=== PATIENT | male | born 1960 | race African-American/Black ===

== ENCOUNTER 2016-07-25 20:19 | Inpatient (IN) | payer OTHER, MEDICAID ==
[~2016-07-25] VITALS: Ht 180.3 cm; Wt 112.9 kg
[2016-07-25] MEDS ORDERED: NKM (20:21)
[2016-07-25 20:30] VITALS: BP 175/76
[2016-07-25 20:39] LABS: BASOPHILS % (AUTO) 0.5 % (0.0-2.0); MEAN CORPUSCULAR HEMOGLOBIN 33.4 PG (27.0-31.0); MEAN CORPUSCULAR HGB CONC 37.1 G/DL (32.0-36.0); MEAN CORPUSCULAR VOLUME 90 FL (80-99); MEAN PLATELET VOLUME 7.5 FL (6.5-10.1); MONOCYTES % (AUTO) 5.8 % (1.0-10.0); NEUTROPHILS % (AUTO) 77.7 % (45.0-75.0); PLATELET COUNT 239 K/UL (150-450); RED BLOOD COUNT 5.29 M/UL (4.70-6.10); RED CELL DISTRIBUTION WIDTH 12.4 % (11.6-14.8); WHITE BLOOD COUNT 11.6 K/UL (4.8-10.8)
[2016-07-25] MEDS ORDERED: LORazepam Inj 2mg/ml 1ml IV ONE ×2 (20:45→22:30)
[2016-07-25 20:57] LABS: ALANINE AMINOTRANSFERASE 30 U/L (3-41); ALBUMIN/GLOBULIN RATIO 1.2 (1.0-2.7); ANION GAP 21 (5-15); ASPARTATE AMINO TRANSFERASE 42 U/L (5-40); CALCIUM 9.2 mg/dL (8.6-10.2); CARBON DIOXIDE 21 mEQ/L (20-30); CHLORIDE 95 mEQ/L (98-107); CREATININE 1.8 mg/dL (0.7-1.2); GLOMERULAR FILTRATION RATE 39.1 mL/min (>60); HEMOLYSIS 8; POTASSIUM 3.5 mEQ/L (3.4-4.9); SODIUM 137 mEQ/L (135-145); TOTAL PROTEIN 7.8 g/dL (6.6-8.7); TROPONIN I < 0.30 ng/mL (<=0.30)
[2016-07-25 21:08] LABS: CKMB 4.2 ng/mL (< 6.7)
[2016-07-25 22:00] VITALS: BP 172/55
[2016-07-25] MEDS ORDERED: Morphine Sulfate 4mg/ml Inj IVP ONE (22:30)
[2016-07-25 23:03] VITALS: BP 162/73
[2016-07-26] VITALS: BP 153/88
--- NOTE | 2016-07-26 01:12 | Emergency Room Report ---
History of Present Illness General Chief Complaint: Substance Abuse Source: Patient, EMS Present Illness HPI The patient is a 55-year-old male brought in by EMS after increased lower extremity pain after reportedly falling. The patient had been noted to have a recent substance use. Per EMS the patient had been using cocaine. The patient was noted to be fairly agitated by EMS. He reported having pain to both knees worse on the left side. History is limited by patient's agitation poor cooperation. Allergies: Coded Allergies: No Known Allergies (Unverified , 07/25/16) Patient History Past Medical History: see triage record Reviewed Nursing Documentation: PMH: Agreed, PSxH: Agreed Review of Systems All Other Systems: limited - by mental status and confusion Physical Exam Vital Signs Date Time Temp Pulse Resp B/P Pulse Ox O2 Delivery O2 Flow Rate FiO2 07/25/16 20:17 100.9 152 29 186/81 97 Room Air 07/25/16 23:57 2.0 General Appearance: alert, GCS 15, moderate distress ENT: hearing grossly normal, normal voice Neck: full range of motion Respiratory: lungs clear, normal breath sounds Cardiovascular #1: no edema, tachycardia Gastrointestinal: normal bowel sounds, non tender, soft Musculoskeletal: decreased range of motion - right patellar swelling without deformity, left patellar superior displacement. Skin: normal inspection Medical Decision Making Diagnostic Impression: Primary Impression: Substance abuse Additional Impressions: Rhabdomyolysis Ruptured patellar tendon Tachycardia with heart rate 121-140 beats per minute ER Course Patient presented for rapid heartbeat and the lower extremity pain. Differential diagnosis included wasn't limited to anemia, substance intoxication , myocardial infarction, cardiac arrhythmia, knee dislocation, fracture, ligamentous sprain among others among others. Because of complexity of patient' s case laboratory testing and imaging studies were ordered. The patient started on IV fluids. He was given Ativan for agitation. The patient was noted to be at confused and continually trying to leave the bed. Patient appeared to have poor recall of conversations. He did not appear to have capacity to make his own decisions at this time. This may be due to methamphetamine intoxication. Urine drug use positive for amphetamine. Patient was noted to have improvement in his blood pressure after IV Ativan. Laboratory testing also showed a mild elevation of creatinine as well as elevation of the CPK consistent with rhabdomyolysis The patient was started on IV fluids. He was advised that he would need continued IV fluids for prevention of kidney failure. The patient was placed in soft restraints. Dr. Denzel Corea contacted for inpatient management due to the patient's persistent tachycardia and confusion. The patient was placed in a knee immobilizer for a patellar tendon injury. Labs Test 07/25/16 20:15 07/25/16 21:50 White Blood Count 11.6 K/UL (4.8-10.8) Red Blood Count 5.29 M/UL (4.70-6.10) Hemoglobin 17.7 G/DL (14.2-18.0) Hematocrit 47.7 % (42.0-52.0) Mean Corpuscular Volume 90 FL (80-99) Mean Corpuscular Hemoglobin 33.4 PG (27.0-31.0) Mean Corpuscular Hemoglobin Concent 37.1 G/DL (32.0-36.0) Red Cell Distribution Width 12.4 % (11.6-14.8) Platelet Count 239 K/UL (150-450) Mean Platelet Volume 7.5 FL (6.5-10.1) Neutrophils (%) (Auto) 77.7 % (45.0-75.0) Lymphocytes (%) (Auto) 16.0 % (20.0-45.0) Monocytes (%) (Auto) 5.8 % (1.0-10.0) Eosinophils (%) (Auto) 0.0 % (0.0-3.0) Basophils (%) (Auto) 0.5 % (0.0-2.0) Sodium Level 137 mEQ/L (135-145) Potassium Level 3.5 mEQ/L (3.4-4.9) Chloride Level 95 mEQ/L (98-107) Carbon Dioxide Level 21 mEQ/L (20-30) Anion Gap 21 (5-15) Blood Urea Nitrogen 13 mg/dL (7-23) Creatinine 1.8 mg/dL (0.7-1.2) Estimat Glomerular Filtration Rate 39.1 mL/min (>60) Glucose Level 202 mg/dL (74-106) Calcium Level 9.2 mg/dL (8.6-10.2) Total Bilirubin 0.5 mg/dL (0.0-1.2) Aspartate Amino Transf (AST/SGOT) 42 U/L (5-40) Alanine Aminotransferase (ALT/SGPT) 30 U/L (3-41) Alkaline Phosphatase 56 U/L (40-129) Total Creatine Kinase > 1700 U/L (38-174) Creatine Kinase MB 4.2 ng/mL (< 6.7) Creatine Kinase MB Relative Index 0.0 Troponin I < 0.30 ng/mL (<=0.30) Pro-B-Type Natriuretic Peptide 34 pg/mL (0-125) Total Protein 7.8 g/dL (6.6-8.7) Albumin 4.3 g/dL (3.5-5.2) Globulin 3.5 g/dL Albumin/Globulin Ratio 1.2 (1.0-2.7) Urine Opiates Screen Negative (NEGATIVE) Urine Barbiturates Screen Negative (NEGATIVE) Phencyclidine (PCP) Screen Negative (NEGATIVE) Urine Amphetamines Screen Positive (NEGATIVE) Urine Benzodiazepines Screen Negative (NEGATIVE) Urine Cocaine Screen Negative (NEGATIVE) Urine Marijuana (THC) Screen Negative (NEGATIVE) Last Vital Signs Date Time Temp Pulse Resp B/P Pulse Ox O2 Delivery O2 Flow Rate FiO2 07/25/16 23:57 131 30 143/65 96 Nasal Cannula 2.0 07/25/16 22:00 99.5 Status: improved Disposition: ADMITTED INPATIENT Condition: Serious Referrals: NON PHYSICIAN (PCP) Brice Otero Jul 26, 2016 01:12
[2016-07-26] MEDS: Heparin 5000 units/ml inj SUBQ SCH ×3 (01:32→21:00)
[2016-07-26] MEDS: D5 1/2NS 1,000 ML IV SCH ×3 (01:35→17:44)
[2016-07-26 05:18] VITALS: BP 181/107
[2016-07-26 07:43] LABS: ANION GAP 18 (5-15); CALCIUM 8.7 mg/dL (8.6-10.2); CARBON DIOXIDE 22 mEQ/L (20-30); CHLORIDE 99 mEQ/L (98-107); CREATININE 1.3 mg/dL (0.7-1.2); GLOMERULAR FILTRATION RATE > 60 mL/min (>60); HEMOLYSIS 4; POTASSIUM 3.5 mEQ/L (3.4-4.9); SODIUM 139 mEQ/L (135-145)
[2016-07-26 08:07] VITALS: BP 166/92
--- NOTE | 2016-07-26 10:40 | History & Physical ---
History and Physical History & Physicial [id number] amphetamine OD RI rhabdomyolysis HLD HTN Tachycardia IVF ativan prn hold HLD meds bp control check labs and replace RUBEN St DO Jul 26, 2016 10:40
--- NOTE | 2016-07-26 11:21 | Diagnostic Imaging Report ---
Indication: Pain 3 views of the right knee were obtained. Findings: No acute fracture, malalignment, or joint effusion are identified. Joint space is relatively well-maintained. Bone mineralization is within normal limits for age. Impression: Negative exam
--- NOTE | 2016-07-26 11:23 | Diagnostic Imaging Report ---
Indication: Chest Pain Comparison: None A single view chest radiograph was obtained. Findings: Interstitial edema is suspected. The heart is prominent. Lung volumes are low. Bones are unremarkable. Impression: Mild interstitial edema may be present. Please correlate clinically
[2016-07-26 11:50] VITALS: BP 161/98
--- NOTE | 2016-07-26 12:00 | Consultation ---
Consult Note Assessment/Plan Renal consult dictated # [id number] CARLOS TARIQ Jul 26, 2016 12:00
[2016-07-26 20:00] VITALS: BP 178/91
--- NOTE | 2016-07-26 21:15 | Consultation ---
DATE OF CONSULTATION: 07/25/2016 NEPHROLOGY CONSULTATION CONSULTING PHYSICIAN: ATTENDING PHYSICIAN: REFERRING PHYSICIAN: Dr. Denzel Corea. REASON FOR CONSULTATION: Acute renal failure. HISTORY OF PRESENT ILLNESS: This is a 55-year-old male, who was brought by paramedics for increased lower extremity pain after reported falling. The patient says that his knees buckled. The patient was abusing cocaine and was found to be also agitated by paramedics. On admission labs showed that the patient had renal failure with BUN and creatinine of 13 and 1.8, also patient had elevated CK more than 1700. He was admitted with diagnosis of rhabdomyolysis. PAST MEDICAL HISTORY: The patient denies any history of kidney problems, denies history of diabetes, hypertension. History of congestive heart failure. MEDICATION: Reviewed in the EMR. SOCIAL HISTORY: The patient stated that he has been using cocaine for the past 25 years, but he uses only every 6 months or so. He denies tobacco abuse. He lives at home with daughter. 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 ALLERGIES: No known drug allergies. REVIEW OF SYSTEMS: Noncontributory. PHYSICAL EXAMINATION: GENERAL: The patient is a 55-year-old male, in no acute distress. VITAL SIGNS: Blood pressure is 166/92, pulse 113, respirations 20, temperature 98.4. HEENT: [place] conjunctivae. Anicteric sclerae. NECK: Supple. LUNGS: Clear to auscultation. HEART: S1 and S2 without murmurs or rubs. ABDOMEN: Soft and nontender. EXTREMITIES: Bilateral pedal edema. LABORATORY FINDINGS: The chemistry panel shows a serum sodium 139, potassium 3.5, chloride 99, CO2 22, BUN is 11, and creatinine 1.3, blood sugar is 103, calcium is 8.7. CBC shows WBC of 11.6, hematocrit 47.7, hemoglobin is 17.7, platelets 231,000. ASSESSMENT: This is a 55-year-old male who was admitted with agitation after cocaine abuse and was found to have also acute renal failure with elevated CPK, which was consistent with rhabdomyolysis. He was hydrated with IV fluids overnight and his serum creatinine has come down significantly. He denies previous history of the kidney problems and I doubt that the patient has history of CKD but it is not completely ruled out. He still has hypertension and also is somewhat tachycardic. PLAN: 1. I would continue intravenous fluid another 24 hours. 2. BMP and CPK will be followed closely. 3. I would get also an echocardiogram to make sure the patient does not have any underlying cocaine induced cardiomyopathy also to rule out left ventricular hypertrophy as a result of hypertension. 4. In terms of his treatments for his hypertension, I would start him on amlodipine at this time. Thank you very much, Dr. Corea and Dr. Kilpatrick for this consultation. Vern Salazar M.D. DR: JUDIT JOB#: [id number] CC: MARKY
--- NOTE | 2016-07-26 21:15 | History and Physical Report ---
DATE OF ADMISSION: 07/25/2016 REASON FOR ADMISSION: Amphetamine use. HISTORY OF PRESENT ILLNESS: The patient is a 55-year-old male who was brought in by EMS after complaining of lower extremity pain and falling with his knees giving out, did not know if he hit his head. He told the EMS that he used cocaine but his urine drug screen came back positive for amphetamine use although today he is currently denying that he does not use any drugs at all. He was agitated. No nausea, vomiting, or diarrhea. He was noted to be hypertensive and tachycardic which is improved over the last 24 hours. His CK was initially 1700 but is currently 4600. He was not getting out of bed at that time. PAST MEDICAL HISTORY: Hyperlipidemia, hypertension, history of asthma. SOCIAL HISTORY: He denies but he has positive urine drug screen for amphetamine. FAMILY HISTORY: Noncontributory. REVIEW OF SYSTEMS: Negative for chest pain, shortness of breath, nausea, diarrhea, fever, chills, or weight changes. PHYSICAL EXAMINATION: GENERAL: At the time of my exam, he is alert, he is oriented to person. VITAL SIGNS: He is afebrile. His pulse is 113, blood pressure 166/92, O2 saturation 96% on room air. HEENT: He is normocephalic and atraumatic. NECK: Supple without lymphadenopathy. LUNGS: Clear to auscultation. No wheeze or rhonchi. HEART: Regular rate and rhythm without murmur. ABDOMEN: Soft and nontender. Positive bowel sounds. EXTREMITIES: No edema. NEUROLOGICAL: No focal neurologic deficits present. LABORATORY AND DIAGNOSTIC DATA: Urine drug screen positive for amphetamine. His sodium is 139, potassium 3.5, chloride 99, bicarb 22, BUN 11, creatinine 1.3, glucose is 107. His CK 4315. Troponin is negative. His EKG demonstrates sinus tachycardia. His white count 11.6, hemoglobin is 17.7, and platelets are 239,000. In the emergency room note, he was started on intravenous fluids, given some Ativan for his agitation. ASSESSMENT AND PLAN: 1. Acute intoxication of amphetamine. 2. Rhabdomyolysis. 3. Tachycardia. 4. Renal insufficiency. 5. Dehydration. PLAN: He has been admitted. We will continue him on telemetry. Continue judicious intravenous fluids. Resume his pre-hospital medications. O2 as needed for saturations greater than 92%. As needed Ativan for agitation. DVT prophylaxis. Nebulizer treatments as needed. Recheck his laboratories and replace his electrolytes accordingly. We will have nephrology follow with the patient as well. Chika Kilpatrick D.O. DR: Sarah JOB#: [id number] CC:
[2016-07-27] VITALS: BP 138/96
[2016-07-27] MEDS: LORazepam 1mg tab ORAL PRN ×4 (00:58→22:54)
[2016-07-27] MEDS: D5 1/2NS 1,000 ML IV SCH ×4 (00:59→23:15)
[2016-07-27 04:00] VITALS: BP 134/80
[2016-07-27] MEDS ORDERED: Haloperidol 5mg/ml Inj IM ONE (06:00)
[2016-07-27] MEDS ORDERED: LORazepam Inj 2mg/ml 1ml IV ONE (06:30)
[2016-07-27 08:29] LABS: BASOPHILS % (AUTO) 0.9 % (0.0-2.0); EOSINOPHILS % (AUTO) 0.1 % (0.0-3.0); LYMPHOCYTES % (AUTO) 9.2 % (20.0-45.0); MEAN CORPUSCULAR HEMOGLOBIN 30.5 PG (27.0-31.0); MEAN CORPUSCULAR HGB CONC 34.3 G/DL (32.0-36.0); MEAN CORPUSCULAR VOLUME 89 FL (80-99); MEAN PLATELET VOLUME 8.1 FL (6.5-10.1); MONOCYTES % (AUTO) 12.1 % (1.0-10.0); NEUTROPHILS % (AUTO) 77.8 % (45.0-75.0); PLATELET COUNT 199 K/UL (150-450); RED BLOOD COUNT 5.17 M/UL (4.70-6.10); RED CELL DISTRIBUTION WIDTH 12.2 % (11.6-14.8); WHITE BLOOD COUNT 11.7 K/UL (4.8-10.8)
--- NOTE | 2016-07-27 08:53 | Diagnostic Imaging Report ---
Indication: Pain 3 views of the left knee were obtained. Findings: There is a very high position of the patella. This is indicative of a patellar tendon rupture. There is no acute fracture identified. Impression: Patellar tendon rupture
[2016-07-27 08:57] LABS: ANION GAP 17 (5-15); CALCIUM 8.8 mg/dL (8.6-10.2); CARBON DIOXIDE 21 mEQ/L (20-30); CHLORIDE 98 mEQ/L (98-107); CREATININE 1.4 mg/dL (0.7-1.2); GLOMERULAR FILTRATION RATE > 60 mL/min (>60); HEMOLYSIS 10; LIPASE 13 U/L (< 60); MAGNESIUM 1.4 mg/dL (1.7-2.5); POTASSIUM 3.8 mEQ/L (3.4-4.9); SODIUM 136 mEQ/L (135-145)
[2016-07-27] MEDS: Heparin 5000 units/ml inj SUBQ SCH ×2 (08:58→21:00)
[2016-07-27 08:59] LABS: TROPONIN I < 0.30 ng/mL (<=0.30)
--- NOTE | 2016-07-27 09:12 | Consultation ---
Consult Note Consult Note Patient with vague history of recent drug abuse, status post acute Left knee> Right knee pain after a fall. Xrays: Left patella Katie consistent with patella tendon disruption. Unable to fully extend the left knee. Plan: MRI Bilateral knee, Plan on Surgery in am for repair of left knee patella tendon. Will follow up on the MRI. 2D echo done and Dr. Corea will medically optimize the patient for surgery. Patient agrees with the treatment plan. Thank you GUILLE DILLARD Jul 27, 2016 09:12
--- NOTE | 2016-07-27 09:28 | Nephrology Progress Note ---
Assessment/Plan Problem List: (1) Rhabdomyolysis (2) Substance abuse (3) ARF (acute renal failure) Assessment: no significant change Plan IVF check UA follow BMP Discussed with RN pain meds Subjective Subjective C/O knee pain Objective Objective Last 24 Hour Vital Signs Date Time Temp Pulse Resp B/P Pulse Ox O2 Delivery O2 Flow Rate FiO2 07/27/16 08:56 107 134/80 07/27/16 04:00 97.6 111 20 134/80 96 Room Air 2.0 07/27/16 04:00 107 07/27/16 00:00 97.7 105 19 138/96 100 Room Air 2.0 07/27/16 00:00 107 07/26/16 20:00 98.1 97 20 178/91 100 Room Air 2.0 07/26/16 20:00 109 07/26/16 16:00 103 07/26/16 12:24 108 161/98 07/26/16 12:00 105 07/26/16 11:50 97.9 108 20 161/98 95 Room Air Intake and Output 07/26/16 07/27/16 19:00 07:00 Intake Total 1000 ml Output Total 450 ml Balance 550 ml IV Total 1000 ml Output Urine Total 450 ml Laboratory Tests 07/27/16 08:00: White Blood Count 11.7H, Red Blood Count 5.17, Hemoglobin 15.8, Hematocrit 45.9 , Mean Corpuscular Volume 89, Mean Corpuscular Hemoglobin 30.5, Mean Corpuscular Hemoglobin Concent 34.3, Red Cell Distribution Width 12.2, Platelet Count 199, Mean Platelet Volume 8.1, Neutrophils (%) (Auto) 77.8H, Lymphocytes ( %) (Auto) 9.2L, Monocytes (%) (Auto) 12.1H, Eosinophils (%) (Auto) 0.1, Basophils (%) (Auto) 0.9, Sodium Level 136, Potassium Level 3.8, Chloride Level 98, Carbon Dioxide Level 21, Anion Gap 17H, Blood Urea Nitrogen 9, Creatinine 1.4H, Estimat Glomerular Filtration Rate > 60, Glucose Level 97, Calcium Level 8.8, Magnesium Level 1.4L, Total Creatine Kinase 4487H, Troponin I < 0.30, Lipase 13 Height (Feet): 5 Height (Inches): 11.00 Weight (Pounds): 82 Cardiovascular: normal rate Respiratory/Chest: lungs clear Extremities: trace edema CARLOS TARIQ Jul 27, 2016 09:28
[2016-07-27 10:03] LABS: INR 1.1 (0.9-1.1); PROTHROMBIN TIME 11.1 SEC (9.30-11.50)
--- NOTE | 2016-07-27 10:12 | General Progress Note ---
Assessment/Plan Assessment/Plan 1. Acute intoxication of amphetamine. 2. Rhabdomyolysis. 3. Tachycardia. 4. Renal insufficiency. 5. Patella tendon rupture CPK elevation mild Psych will see him Disc w ortho, nephrology Agrees to surgery tomorrow OK for surgery Subjective Allergies: Coded Allergies: No Known Allergies (Unverified , 07/25/16) Subjective knee pain Objective Last 24 Hour Vital Signs Date Time Temp Pulse Resp B/P Pulse Ox O2 Delivery O2 Flow Rate FiO2 07/27/16 08:56 107 134/80 07/27/16 04:00 97.6 111 20 134/80 96 Room Air 2.0 07/27/16 04:00 107 07/27/16 00:00 97.7 105 19 138/96 100 Room Air 2.0 07/27/16 00:00 107 07/26/16 20:00 98.1 97 20 178/91 100 Room Air 2.0 07/26/16 20:00 109 07/26/16 16:00 103 07/26/16 12:24 108 161/98 07/26/16 12:00 105 07/26/16 11:50 97.9 108 20 161/98 95 Room Air Intake and Output 07/26/16 07/27/16 19:00 07:00 Intake Total 1000 ml Output Total 450 ml Balance 550 ml IV Total 1000 ml Output Urine Total 450 ml Laboratory Tests 07/27/16 08:00: White Blood Count 11.7H, Red Blood Count 5.17, Hemoglobin 15.8, Hematocrit 45.9 , Mean Corpuscular Volume 89, Mean Corpuscular Hemoglobin 30.5, Mean Corpuscular Hemoglobin Concent 34.3, Red Cell Distribution Width 12.2, Platelet Count 199, Mean Platelet Volume 8.1, Neutrophils (%) (Auto) 77.8H, Lymphocytes ( %) (Auto) 9.2L, Monocytes (%) (Auto) 12.1H, Eosinophils (%) (Auto) 0.1, Basophils (%) (Auto) 0.9, Sodium Level 136, Potassium Level 3.8, Chloride Level 98, Carbon Dioxide Level 21, Anion Gap 17H, Blood Urea Nitrogen 9, Creatinine 1.4H, Estimat Glomerular Filtration Rate > 60, Glucose Level 97, Calcium Level 8.8, Magnesium Level 1.4L, Total Creatine Kinase 4487H, Troponin I < 0.30, Lipase 13 07/27/16 09:40: Prothrombin Time [Pending], Prothromb Time International Ratio [Pending], Activated Partial Thromboplast Time [Pending], Uric Acid [Pending] Height (Feet): 5 Height (Inches): 11.00 Weight (Pounds): 82 General Appearance: mild distress, agitated - at times Neck: supple Cardiovascular: tachycardia Respiratory/Chest: lungs clear Extremities: other - knees tender AUGUSTINE CABALLERO Jul 27, 2016 10:12
[2016-07-27] MEDS ORDERED: ceFAZolin sod 1 GM in D5W 55 ML IV ONE (10:30)
[2016-07-27] MEDS ORDERED: D5 1/2NS 1000ml IV ONE (11:18)
--- NOTE | 2016-07-27 12:32 | Diagnostic Imaging Report ---
Indication: Chest Pain Comparison: 07/25/16 A single view chest radiograph was obtained. Findings: Cardiomediastinal appearance is within normal limits for age. Pulmonary vascularity is appropriate. The diaphragmatic contour is smooth and costophrenic angles are sharp. No pleural effusions are identified. The bones are unremarkable. Impression: No acute findings
--- NOTE | 2016-07-27 16:13 | Diagnostic Imaging Report ---
Indication: Knee injury and pain Technique: MRI of the right knee was imaged in a 1.5 Ramila magnet. Pulse sequences obtained include coronal T1 fast spin-echo, STIR, sagittal coronal and axial proton fast spin-echo with fat saturation, sagittal proton fast spin-echo. Comparison: None Findings: The patellar tendon is intact. However the quadriceps tendon just above the patella appears ruptured. The fibers of the tendon are noncontiguous and there is amorphous intermediate signal intensity present. Soft tissue swelling and T2 hyperintense edema noted surrounding the ruptured part of the tendon. The patella itself appears intact. There is no significant joint effusion. Remainder the exam is essentially normal. The articular cartilage is well preserved. Anterior and posterior cruciate ligaments, the menisci, medial collateral ligament and lateral collateral ligamentous complexes normal. Impression: Quadriceps tendon rupture.
[2016-07-27 16:46] VITALS: BP 120/72
[2016-07-27 19:45] LABS: APPEARANCE,URINE CLEAR; KETONES,URINE 1+ (NEGATIVE); LEUKOCYTE ESTERASE ,URINE 1+ (NEGATIVE); NITRITE,URINE NEGATIVE (NEGATIVE); PH,URINE 6 (4.5-8.0); PROTEIN,URINE NEGATIVE (NEGATIVE); UROBILINOGEN,URINE 4 MG/DL (0.0-1.0)
[2016-07-27 19:47] LABS: ICTOTEST NEGATIVE
[2016-07-27 19:54] LABS: RBC,URINE 0-2 /HPF (0 - 0); WBC,URINE 0-2 /HPF (0 - 0)
[2016-07-27 19:55] VITALS: BP 125/69
[2016-07-27 23:50] VITALS: BP 123/73
--- NOTE | 2016-07-27 23:58 | Consultation ---
History of Present Illness General Date patient seen: Jul 27, 2016 Chief Complaint: Substance Abuse Present Illness HPI 55-year-old male, who was brought by paramedics for increased lower extremity pain after reported falling. The patient says that his knees buckled. The patient was abusing cocaine and was found to be also agitated by paramedics. target sxs irritable mood, anxiety, fatigue, anhedonia. no si/hi/ psychotic sxs Allergies: Coded Allergies: No Known Allergies (Unverified , 07/25/16) Medication History Scheduled No Known Medications* (NKM - No Known Medications*), 0 ., (Reported) Patient History History Provided By: Patient, Medical Record, PMD Healthcare decision maker Resuscitation status Full Code Advanced Directive on File No Past Medical/Surgical History Past Medical/Surgical History: (1) Ruptured patellar tendon (2) Tachycardia with heart rate 121-140 beats per minute (3) Substance abuse (4) Rhabdomyolysis (5) ARF (acute renal failure) Review of Systems Constitutional: Reports: malaise, weakness Psychiatric: Reports: anxiety, depressed feelings, emotional problems Physical Exam General Appearance: alert, mild distress Neurologic: alert, oriented x 3, responsive, depressed affect Last 24 Hour Vital Signs Date Time Temp Pulse Resp B/P Pulse Ox O2 Delivery O2 Flow Rate FiO2 07/27/16 19:55 98.0 94 20 125/69 100 Room Air 07/27/16 16:46 97.7 92 18 120/72 99 Room Air 07/27/16 16:00 93 07/27/16 12:00 117 07/27/16 08:56 107 134/80 07/27/16 04:00 97.6 111 20 134/80 96 Room Air 2.0 07/27/16 04:00 107 07/27/16 00:00 97.7 105 19 138/96 100 Room Air 2.0 07/27/16 00:00 107 Intake and Output 07/26/16 07/27/16 19:00 07:00 Intake Total 1000 ml Output Total 450 ml Balance 550 ml IV Total 1000 ml Output Urine Total 450 ml Laboratory Tests Test 07/27/16 08:00 07/27/16 09:40 07/27/16 19:20 White Blood Count 11.7 K/UL (4.8-10.8) H Red Blood Count 5.17 M/UL (4.70-6.10) Hemoglobin 15.8 G/DL (14.2-18.0) Hematocrit 45.9 % (42.0-52.0) Mean Corpuscular Volume 89 FL (80-99) Mean Corpuscular Hemoglobin 30.5 PG (27.0-31.0) Mean Corpuscular Hemoglobin Concent 34.3 G/DL (32.0-36.0) Red Cell Distribution Width 12.2 % (11.6-14.8) Platelet Count 199 K/UL (150-450) Mean Platelet Volume 8.1 FL (6.5-10.1) Neutrophils (%) (Auto) 77.8 % (45.0-75.0) H Lymphocytes (%) (Auto) 9.2 % (20.0-45.0) L Monocytes (%) (Auto) 12.1 % (1.0-10.0) H Eosinophils (%) (Auto) 0.1 % (0.0-3.0) Basophils (%) (Auto) 0.9 % (0.0-2.0) Sodium Level 136 mEQ/L (135-145) Potassium Level 3.8 mEQ/L (3.4-4.9) Chloride Level 98 mEQ/L (98-107) Carbon Dioxide Level 21 mEQ/L (20-30) Anion Gap 17 (5-15) H Blood Urea Nitrogen 9 mg/dL (7-23) Creatinine 1.4 mg/dL (0.7-1.2) H Estimat Glomerular Filtration Rate > 60 mL/min (>60) Glucose Level 97 mg/dL (74-106) Calcium Level 8.8 mg/dL (8.6-10.2) Magnesium Level 1.4 mg/dL (1.7-2.5) L Total Creatine Kinase 4487 U/L (38-174) H Troponin I < 0.30 ng/mL (<=0.30) Lipase 13 U/L (< 60) Prothrombin Time 11.1 SEC (9.30-11.50) Prothromb Time International Ratio 1.1 (0.9-1.1) Activated Partial Thromboplast Time 27 SEC (23-33) Uric Acid 8.6 mg/dL (3.0-7.5) H Urine Color Jessica Urine Appearance Clear Urine pH 6 (4.5-8.0) Urine Specific [place] 1.015 (1.005-1.035) Urine Protein Negative (NEGATIVE) Urine Glucose (UA) Negative (NEGATIVE) Urine Ketones 1+ (NEGATIVE) H Urine Occult Blood Negative (NEGATIVE) Urine Nitrite Negative (NEGATIVE) Urine Bilirubin Negative (NEGATIVE) Urine Ictotest Negative Urine Urobilinogen 4 MG/DL (0.0-1.0) H Urine Leukocyte Esterase 1+ (NEGATIVE) H Urine RBC 0-2 /HPF (0 - 0) H Urine WBC 0-2 /HPF (0 - 0) Urine Squamous Epithelial Cells None /LPF (NONE/OCC) Urine Bacteria None /HPF (NONE) Height (Feet): 5 Height (Inches): 11.00 Weight (Pounds): 82 Medications Current Medications Medications (Trade) Dose Ordered Sig/Leila Route PRN Reason Start Time Stop Time Status Last Admin Dose Admin Acetaminophen (Tylenol) 650 mg Q4H PRN ORAL Mild Pain/Temp > 100.5 07/27/16 09:30 08/26/16 09:29 07/27/16 19:26 Amlodipine Besylate (Norvasc) 5 mg DAILY ORAL 07/26/16 13:00 08/25/16 12:59 07/27/16 08:56 Clonidine HCl (Catapres) 0.1 mg Q4H PRN ORAL For High Blood Pressure 07/26/16 04:45 08/25/16 04:44 07/26/16 06:12 Dextrose STAT PRN IV Hypoglycemia 07/25/16 23:15 08/24/16 23:14 Dextrose/Sodium Chloride (D5 0.45% NS) 1,000 ml @ 125 mls/hr Q8H IV 07/25/16 23:15 08/24/16 23:14 07/27/16 11:47 Heparin Sodium (Porcine) (Heparin 5000 units/ml) 5,000 units EVERY 12 HOURS SUBQ 07/25/16 23:15 08/24/16 23:14 07/26/16 09:17 Lorazepam (Ativan) 2 mg EVERY HOUR PRN ORAL Restlessness 07/25/16 23:15 08/01/16 23:14 07/27/16 22:54 Assessment/Plan Status: not improved Assessment/Plan cocaine abuse, mood d/o and anxiety -ativan pr -lexapro 10 qam -remeron 7.[facility] Kiley La M.D. Jul 27, 2016 23:58
[2016-07-28] VITALS (19 sets, daily range): BP systolic 109–150; BP diastolic 62–85
--- NOTE | 2016-07-28 00:45 | Consultation ---
DATE OF CONSULTATION: 07/27/2016 REASON FOR CONSULTATION: Bilateral knee pain, left worse than right. BRIEF HISTORY: The patient is a pleasant 55-year-old gentleman, who was admitted by the EMS after complaint of lower extremity pain and swelling, but his knee is giving out. He does not know if he had lost consciousness. He told EMS that he had some cocaine use but his drug screen came back positive for amphetamines. He has had no nausea or vomiting. He was presenting with a CK of 1700 and it went up to 4600, however, he was hydrated. He has some elevated renal function test, which has come back down after hydration. However, he is confused about right knee pain. X-ray of left knee showed patella florentin, which is consistent with tendon rupture. The right side x-ray did not show significant patellar alteration. However, he is unable to extend both knees. He has got weakness in bilateral knees and inability to straighten now. He is here for evaluation and treatment. PAST MEDICAL HISTORY: Significant for hyperlipidemia, hypertension, and asthma. PAST SURGICAL HISTORY: None available. MEDICATIONS: Please see chart, this was reviewed and reconciled. SOCIAL HISTORY: He denies any significant smoking or drinking. He indicated that there has been previous drug use. His urine drug screen came back positive for methamphetamine. FAMILY HISTORY: Noncontributory. REVIEW OF SYSTEMS: Negative for chest pain, shortness of breath, nausea, vomiting, fever, or chills. PHYSICAL EXAMINATION: He has got calf tenderness in bilateral knees. On the right side, he has got tenderness over the origin of quads. There is some swelling. He is unable to fully extend his leg. He is unable to do a straight leg raise on the right side. Stiffness mediolaterally and joint line. His contraction of quads causes pain over the quadriceps tendon. The patient has a hard time complying with examination because of pain. With regards to the left knee, he has got tenderness over the patellar tendon. He has got superior subluxation of the patella and significant swelling. There is a knee immobilizer in place. There is no skin breakdown. He is unable to extend his left knee. Neuro exam is intact. IMAGING STUDIES: X-ray of bilateral knees are reviewed. On left side, there is patella florentin consistent with a patellar tendon rupture. On the right side, there is no significant alteration of the patellar location. IMPRESSION: 1. Acute intoxication with amphetamine. 2. Lab Abnormalities under control. 3. Renal insufficiency under control. 4. Most likely left patellar tendon rupture. 5. Most likely right quadriceps tendon rupture. PLAN: At this time, we will go ahead and get MRI of the bilateral knees. Most likely will require left knee patellar tendon repair as well as the right knee quadriceps tendon repair versus patellar tendon repair. Risks, benefits and complications were discussed. The risks of infection, bleeding, vascular complications were discussed today. Understands he will need to be in a wheelchair for a period of time although can be weightbearing as tolerated with knee immobilizer in place. He understands the risk of surgery and complications associated with it and he is willing to proceed with it. All questions were answered. He states that he is willing to comply with the physical therapy and weightbearing restrictions. We are going to proceed with surgery once MRI is done and medically cleared and optimize 2D echo has been done. Cecil Soto M.D. DR: RONY JOB#: [id number] CC: MARKY
[2016-07-28 05:52] LABS: EOSINOPHILS % (AUTO) 1.4 % (0.0-3.0); LYMPHOCYTES % (AUTO) 24.1 % (20.0-45.0); MEAN CORPUSCULAR HEMOGLOBIN 30.8 PG (27.0-31.0); MEAN CORPUSCULAR HGB CONC 34.5 G/DL (32.0-36.0); MEAN CORPUSCULAR VOLUME 89 FL (80-99); MEAN PLATELET VOLUME 8.3 FL (6.5-10.1); MONOCYTES % (AUTO) 12.6 % (1.0-10.0); PLATELET COUNT 179 K/UL (150-450); RED BLOOD COUNT 4.72 M/UL (4.70-6.10); RED CELL DISTRIBUTION WIDTH 12.1 % (11.6-14.8); WHITE BLOOD COUNT 8.5 K/UL (4.8-10.8)
[2016-07-28 05:56] LABS: ALANINE AMINOTRANSFERASE 27 U/L (3-41); ALBUMIN/GLOBULIN RATIO 0.8 (1.0-2.7); ANION GAP 15 (5-15); ASPARTATE AMINO TRANSFERASE 45 U/L (5-40); CARBON DIOXIDE 23 mEQ/L (20-30); CHLORIDE 98 mEQ/L (98-107); CREATININE 1.3 mg/dL (0.7-1.2); GLOMERULAR FILTRATION RATE > 60 mL/min (>60); HEMOLYSIS 4; POTASSIUM 3.4 mEQ/L (3.4-4.9); SODIUM 136 mEQ/L (135-145); TOTAL PROTEIN 6.3 g/dL (6.6-8.7)
[2016-07-28] MEDS ORDERED: Atropine Inj 1mg/10ml Syr IV PRN (06:45)
[2016-07-28] MEDS ORDERED: Midazolam 2mg/2ml Inj IVP PRN (06:45)
[2016-07-28] MEDS ORDERED: LR 1000ml 1,000 ML IVLG SCH (06:45)
[2016-07-28] MEDS ORDERED: DiphenhydrAMINE 50mg/ml Inj IVP PRN (06:45)
[2016-07-28] MEDS ORDERED: Norco 5mg/325mg tab ORAL PRN (06:45)
[2016-07-28] MEDS ORDERED: fentaNYL 100 mcg/2 mL IV PRN (06:45)
[2016-07-28] MEDS ORDERED: Hydromorphone 0.5mg/0.5ml inj IVP PRN (06:45)
[2016-07-28] MEDS ORDERED: Oxycodone/Acetaminophen 5-325 ORAL PRN (06:45)
[2016-07-28] MEDS ORDERED: LORazepam Inj 2mg/ml 1ml IV PRN (06:45)
[2016-07-28] MEDS ORDERED: Norco 7.5mg/325mg tab ORAL PRN ×2 (06:45→07:15)
--- NOTE | 2016-07-28 06:45 | Anethesia Preoperative Eval ---
Anesthesia Pre-op PMH/ROS General Date of Evaluation: Jul 28, 2016 Time of Evaluation: 07:04 Anesthesiologist: Gucci ASA Score: ASA 3 Mallampati Score Class I : Soft palate, uvula, fauces, pillars visible Class II: Soft palate, uvula, fauces visible Class III: Soft palate, base of uvula visible Class IV: Only hard plate visible Mallampati Classification: Class II Surgeon: Brittany Diagnosis: L Knee Pain Surgical Procedure: L Knee Patella Repair Anesthesia History: none Social History: alcohol use, drug use Family History: no anesthesia problems Allergies: Coded Allergies: No Known Allergies (Unverified , 07/25/16) Medications: see eMAR Past Medical History Cardiovascular: Reports: HTN Neurologic/Psychiatric: Reports: other - Drug Abuse Other: obesity - BMI 35 Anesthesia Pre-op Phys. Exam Physician Exam Last Vital Signs Date Time Temp Pulse Resp B/P Pulse Ox O2 Delivery O2 Flow Rate FiO2 07/28/16 04:00 89 07/28/16 04:00 97.9 18 109/62 Room Air 07/27/16 23:50 100 07/27/16 04:00 2.0 Constitutional: NAD Neurologic: CN 2-12 intact Cardiovascular: RRR Respiratory: CTA Gastrointestinal: S/NT/ND Airway Exam Mallampati Score: Class II MO: limited ROM: limited Teeth: missing, intact Anesthesia Pre-op A/P Labs Hematology Test 07/27/16 08:00 07/28/16 05:30 White Blood Count 11.7 K/UL (4.8-10.8) H 8.5 K/UL (4.8-10.8) Red Blood Count 5.17 M/UL (4.70-6.10) 4.72 M/UL (4.70-6.10) Hemoglobin 15.8 G/DL (14.2-18.0) 14.5 G/DL (14.2-18.0) Hematocrit 45.9 % (42.0-52.0) 42.1 % (42.0-52.0) Mean Corpuscular Volume 89 FL (80-99) 89 FL (80-99) Mean Corpuscular Hemoglobin 30.5 PG (27.0-31.0) 30.8 PG (27.0-31.0) Mean Corpuscular Hemoglobin Concent 34.3 G/DL (32.0-36.0) 34.5 G/DL (32.0-36.0) Red Cell Distribution Width 12.2 % (11.6-14.8) 12.1 % (11.6-14.8) Platelet Count 199 K/UL (150-450) 179 K/UL (150-450) Mean Platelet Volume 8.1 FL (6.5-10.1) 8.3 FL (6.5-10.1) Neutrophils (%) (Auto) 77.8 % (45.0-75.0) H 61.0 % (45.0-75.0) Lymphocytes (%) (Auto) 9.2 % (20.0-45.0) L 24.1 % (20.0-45.0) Monocytes (%) (Auto) 12.1 % (1.0-10.0) H 12.6 % (1.0-10.0) H Eosinophils (%) (Auto) 0.1 % (0.0-3.0) 1.4 % (0.0-3.0) Basophils (%) (Auto) 0.9 % (0.0-2.0) 1.0 % (0.0-2.0) Coagulation Test 07/27/16 09:40 Prothrombin Time 11.1 SEC (9.30-11.50) Prothromb Time International Ratio 1.1 (0.9-1.1) Activated Partial Thromboplast Time 27 SEC (23-33) Chemistry Test 07/27/16 08:00 07/27/16 09:40 07/28/16 05:30 Sodium Level 136 mEQ/L (135-145) 136 mEQ/L (135-145) Potassium Level 3.8 mEQ/L (3.4-4.9) 3.4 mEQ/L (3.4-4.9) Chloride Level 98 mEQ/L (98-107) 98 mEQ/L (98-107) Carbon Dioxide Level 21 mEQ/L (20-30) 23 mEQ/L (20-30) Anion Gap 17 (5-15) H 15 (5-15) Blood Urea Nitrogen 9 mg/dL (7-23) 10 mg/dL (7-23) Creatinine 1.4 mg/dL (0.7-1.2) H 1.3 mg/dL (0.7-1.2) H Estimat Glomerular Filtration Rate > 60 mL/min (>60) > 60 mL/min (>60) Glucose Level 97 mg/dL (74-106) 107 mg/dL (74-106) H Calcium Level 8.8 mg/dL (8.6-10.2) 8.0 mg/dL (8.6-10.2) L Magnesium Level 1.4 mg/dL (1.7-2.5) L Total Creatine Kinase 4487 U/L (38-174) H > 1700 U/L (38-174) H Troponin I < 0.30 ng/mL (<=0.30) Lipase 13 U/L (< 60) Uric Acid 8.6 mg/dL (3.0-7.5) H Total Bilirubin 1.0 mg/dL (0.0-1.2) Aspartate Amino Transf (AST/SGOT) 45 U/L (5-40) H Alanine Aminotransferase (ALT/SGPT) 27 U/L (3-41) Alkaline Phosphatase 38 U/L (40-129) L Total Protein 6.3 g/dL (6.6-8.7) L Albumin 2.9 g/dL (3.5-5.2) L Globulin 3.4 g/dL Albumin/Globulin Ratio 0.8 (1.0-2.7) L Risk Assessment & Plan Assessment: ASA 3 Plan: GA, L adductor/femoral Block Status Change Before Surgery: No Pre-Antibiotics Dru Grams Ancef IV Given Within 1 Hr of Incision: Yes Time Given: 07:16 Ace Duckworth MD Jul 28, 2016 06:45
--- NOTE | 2016-07-28 06:47 | Immediate Post-Op Evaluation ---
Immediate Post-Op Evalulation Immediate Post-Op Evalulation Procedure: L Knee Patella Repair Date of Evaluation: Jul 28, 2016 Time of Evaluation: 09:57 IV Fluids: 1000 LR Blood Products: 0 Estimated Blood Loss: 25 Urinary Output: 0 Blood Pressure Systolic: 135 Blood Pressure Diastolic: 80 Pulse Rate: 104 Respiratory Rate: 16 O2 Sat by Pulse Oximetry: 100 Temperature (Fahrenheit): 99 Pain Score (1-10): 2 Nausea: No Vomiting: No Complications 0 Patient Status: awake, reacts, patent, extubated, none Hydration Status: adequate Dru Gams Ancef IV Given Within 1 Hr of Incision: Yes Time Given: 07:16 Ace Duckworth MD Jul 28, 2016 06:47
[2016-07-28] MEDS ORDERED: Bupivacaine w/Epi 0.5% 30ml Vial INJ ONE (06:57)
[2016-07-28] MEDS ORDERED: Bacitracin 50000 Units Vial ONE (06:57)
[2016-07-28] MEDS ORDERED: Lidocaine 1% MPF 10mg/ml 5ml ONE (07:00)
[2016-07-28] MEDS ORDERED: Sterile Water Irrig 1000ml IRRIG ONE (07:00)
[2016-07-28] MEDS ORDERED: NS Irrig 1000ml ONE (07:00)
[2016-07-28] MEDS ORDERED: Alfentanil 2ml Inj ONE (07:00)
[2016-07-28] MEDS ORDERED: LR 1000ml ONE (07:00)
[2016-07-28] MEDS ORDERED: fentaNYL 250mcg/5ml ONE (07:00)
[2016-07-28] MEDS ORDERED: Dexamethasone 4mg/ml vial ONE (07:00)
[2016-07-28] MEDS ORDERED: Midazolam 2mg/2ml Inj ONE (07:00)
[2016-07-28] MEDS ORDERED: Propofol 10mg/ml 20ml IV ONE (07:00)
--- NOTE | 2016-07-28 07:12 | Pre-Procedure Note/Attestation ---
Pre-Procedure Note/Attestation Complete Prior to Procedure Planned Procedure: bilateral Procedure Narrative: rt knee quad tendon repair and left knee patellar tendon repair Indications for Procedure Pre-Operative Diagnosis: rt quad tendon rupture. lt patellar tendon rupture Attestation I attest that I discussed the nature of the procedure; its benefits; risks and complications; and alternatives (and the risks and benefits of such alternatives ), prior to the procedure, with the patient (or the patient's legal eligibility services representative). I attest that, if there was a reasonable possibility of needing a blood transfusion, the patient (or the patient's legal eligibility services representative) was given the [facility] standardized written summary, pursuant to the Fausto Janna Blood Safety Act ([place] Health and Safety Code # 1645, as amended). I attest that I re-evaluated the patient just prior to the surgery and that there has been no change in the patient's H&P, except as documented below: none GUILLE DILLARD Jul 28, 2016 07:12
[2016-07-28] MEDS ORDERED: HYDROmorphone 1mg/ml Carpuject SUBQ PRN (07:15)
--- NOTE | 2016-07-28 08:33 | Diagnostic Imaging Report ---
Indication: Patellar tendon rupture Technique: MRI of the left knee was imaged in a 1.5 Ramila magnet. Pulse sequences obtained include coronal T1 fast spin-echo, STIR, sagittal coronal and axial proton fast spin-echo with fat saturation, sagittal proton fast spin-echo. Comparison: None Findings: The midportion of the patellar tendon is discontinuous consistent with complete rupture. The patellar tendon fibers both above and below the rupture site appear wavy and redundant. Associated patella florentin. There is a moderate degree of anterior prepatellar soft tissue T2 hyperintense edema. There is no patellar fracture. Bone marrow signal is well preserved and normal throughout the visualized osseous structures. Remainder the exam is negative. The medial collateral ligament and lateral collateral ligamentous complex, anterior and posterior cruciate ligaments, medial and lateral menisci, appear normal. Articular cartilage is normal. Impression: Complete patellar tendon rupture.
[2016-07-28] MEDS ORDERED: Acetaminophen (Non formulary) 100 ML IV ONE (09:00)
--- NOTE | 2016-07-28 09:15 | Brief Operative Note ---
Immediate Post Operative Note Operative Note Pre-op Diagnosis: rt quad tendon rupture. lt patellar tendon rupture Post-op Diagnosis: same as pre-op Surgeon: gerald Intellectual Property Lawyer: Srinivas Anesthesiologist: Jase Anesthesia: general Specimen: none Complications: none Condition: stable Estimated Blood Loss: minimal Drains: none Tourniquet time: 66 Implant(s) used?: GUILLE Hernandez Jul 28, 2016 09:15
--- NOTE | 2016-07-28 11:04 | Diagnostic Imaging Report ---
Indication: Pain 2 views of the left knee were obtained. Findings: There is air in the soft tissues consistent with recent surgery. There is air in the joint space. No malalignment or fracture is identified. Impression: Postop left knee film.
--- NOTE | 2016-07-28 11:52 | General Progress Note ---
Assessment/Plan Assessment/Plan 1. Acute intoxication of amphetamine 2. Rhabdomyolysis 3. Tachycardia, resolved 4. Renal insufficiency 5. R quad tendon rupture. L patellar tendon rupture, s/p repair 07/28/16 CPK elevation mild Psych help appreciated post op care Subjective Allergies: Coded Allergies: No Known Allergies (Unverified , 07/25/16) Subjective knee pain Objective Last 24 Hour Vital Signs Date Time Temp Pulse Resp B/P Pulse Ox O2 Delivery O2 Flow Rate FiO2 07/28/16 11:19 97.5 98 20 114/75 99 Nasal Cannula 2.0 07/28/16 10:57 97.1 92 20 141/73 100 Nasal Cannula 3.0 07/28/16 10:56 92 20 141/73 100 Nasal Cannula 3.0 07/28/16 10:41 91 20 131/73 100 Nasal Cannula 3.0 07/28/16 10:33 92 20 131/73 100 Nasal Cannula 3.0 07/28/16 10:25 92 20 131/73 100 Simple Mask 8.0 07/28/16 10:10 97 20 143/79 100 Simple Mask 8.0 07/28/16 09:56 99 20 137/77 100 Simple Mask 8.0 07/28/16 09:51 100 20 144/80 100 Simple Mask 8.0 07/28/16 09:46 99.0 100 20 135/80 100 Simple Mask 8.0 07/28/16 09:46 104 16 100 07/28/16 04:00 89 07/28/16 04:00 97.9 88 18 109/62 Room Air 07/28/16 00:00 87 07/27/16 23:50 97.9 18 123/73 100 Room Air 07/27/16 20:00 89 07/27/16 19:55 98.0 94 20 125/69 100 Room Air 07/27/16 16:46 97.7 92 18 120/72 99 Room Air 07/27/16 16:00 93 07/27/16 12:00 117 Intake and Output 07/27/16 07/28/16 19:00 07:00 Intake Total 930 ml 1375 ml Output Total 600 ml Balance 930 ml 775 ml Intake Oral 180 ml IV Total 750 ml 1375 ml Output Urine Total 600 ml Laboratory Tests 07/27/16 19:20: Urine Color Jessica, Urine Appearance Clear, Urine pH 6, Urine Specific [place] 1.015, Urine Protein Negative, Urine Glucose (UA) Negative, Urine Ketones 1+H, Urine Occult Blood Negative, Urine Nitrite Negative, Urine Bilirubin Negative, Urine Ictotest Negative, Urine Urobilinogen 4H, Urine Leukocyte Esterase 1+H, Urine RBC 0-2H, Urine WBC 0-2, Urine Squamous Epithelial Cells None, Urine Bacteria None 07/28/16 05:30: White Blood Count 8.5, Red Blood Count 4.72, Hemoglobin 14.5, Hematocrit 42.1, Mean Corpuscular Volume 89, Mean Corpuscular Hemoglobin 30.8, Mean Corpuscular Hemoglobin Concent 34.5, Red Cell Distribution Width 12.1, Platelet Count 179, Mean Platelet Volume 8.3, Neutrophils (%) (Auto) 61.0, Lymphocytes (%) (Auto) 24.1, Monocytes (%) (Auto) 12.6H, Eosinophils (%) (Auto) 1.4, Basophils (%) ( Auto) 1.0, Sodium Level 136, Potassium Level 3.4, Chloride Level 98, Carbon Dioxide Level 23, Anion Gap 15, Blood Urea Nitrogen 10, Creatinine 1.3H, Estimat Glomerular Filtration Rate > 60, Glucose Level 107H, Calcium Level 8.0L , Total Bilirubin 1.0, Aspartate Amino Transf (AST/SGOT) 45H, Alanine Aminotransferase (ALT/SGPT) 27, Alkaline Phosphatase 38L, Total Creatine Kinase > 1700H, Total Protein 6.3L, Albumin 2.9L, Globulin 3.4, Albumin/Globulin Ratio 0.8L Height (Feet): 5 Height (Inches): 11.00 Weight (Pounds): 249 AUGUSTINE CABALLERO Jul 28, 2016 11:52
[2016-07-28] MEDS: Norco 5mg/325mg tab ORAL PRN ×3 (12:49→21:27)
[2016-07-28] MEDS: D5 1/2NS w/KCl 20mEq 1,000 ML IV SCH (14:24)
--- NOTE | 2016-07-28 14:48 | Diagnostic Imaging Report ---
Indication: Pain 2 views of the right knee were obtained. Findings: There is air in the anterior lateral aspect of the knee consistent with recent surgery. There is no fracture or malalignment. Impression: Recent surgery
--- NOTE | 2016-07-28 14:49 | Nephrology Progress Note ---
Assessment/Plan Problem List: (1) Rhabdomyolysis (2) Substance abuse (3) ARF (acute renal failure) Assessment: no significant change/ base line ? Plan IVF follow BMP Subjective Subjective wants sleeping pill Objective Objective Last 24 Hour Vital Signs Date Time Temp Pulse Resp B/P Pulse Ox O2 Delivery O2 Flow Rate FiO2 07/28/16 13:06 91 129/71 07/28/16 12:20 97.4 91 20 129/71 97 Nasal Cannula 2.0 07/28/16 12:05 97.5 89 20 129/73 100 Nasal Cannula 2.0 07/28/16 11:50 97.5 98 20 130/72 100 Nasal Cannula 2.0 07/28/16 11:35 97.5 98 20 143/77 99 Nasal Cannula 2.0 07/28/16 11:19 97.5 98 20 114/75 99 Nasal Cannula 2.0 07/28/16 10:57 97.1 92 20 141/73 100 Nasal Cannula 3.0 07/28/16 10:56 92 20 141/73 100 Nasal Cannula 3.0 07/28/16 10:41 91 20 131/73 100 Nasal Cannula 3.0 07/28/16 10:33 92 20 131/73 100 Nasal Cannula 3.0 07/28/16 10:25 92 20 131/73 100 Simple Mask 8.0 07/28/16 10:10 97 20 143/79 100 Simple Mask 8.0 07/28/16 09:56 99 20 137/77 100 Simple Mask 8.0 07/28/16 09:51 100 20 144/80 100 Simple Mask 8.0 07/28/16 09:46 99.0 100 20 135/80 100 Simple Mask 8.0 07/28/16 09:46 104 16 100 07/28/16 04:00 89 07/28/16 04:00 97.9 88 18 109/62 Room Air 07/28/16 00:00 87 07/27/16 23:50 97.9 18 123/73 100 Room Air 07/27/16 20:00 89 07/27/16 19:55 98.0 94 20 125/69 100 Room Air 07/27/16 16:46 97.7 92 18 120/72 99 Room Air 07/27/16 16:00 93 Intake and Output 07/27/16 07/28/16 19:00 07:00 Intake Total 930 ml 1375 ml Output Total 600 ml Balance 930 ml 775 ml Intake Oral 180 ml IV Total 750 ml 1375 ml Output Urine Total 600 ml Laboratory Tests 07/27/16 19:20: Urine Color Jessica, Urine Appearance Clear, Urine pH 6, Urine Specific [place] 1.015, Urine Protein Negative, Urine Glucose (UA) Negative, Urine Ketones 1+H, Urine Occult Blood Negative, Urine Nitrite Negative, Urine Bilirubin Negative, Urine Ictotest Negative, Urine Urobilinogen 4H, Urine Leukocyte Esterase 1+H, Urine RBC 0-2H, Urine WBC 0-2, Urine Squamous Epithelial Cells None, Urine Bacteria None 07/28/16 05:30: White Blood Count 8.5, Red Blood Count 4.72, Hemoglobin 14.5, Hematocrit 42.1, Mean Corpuscular Volume 89, Mean Corpuscular Hemoglobin 30.8, Mean Corpuscular Hemoglobin Concent 34.5, Red Cell Distribution Width 12.1, Platelet Count 179, Mean Platelet Volume 8.3, Neutrophils (%) (Auto) 61.0, Lymphocytes (%) (Auto) 24.1, Monocytes (%) (Auto) 12.6H, Eosinophils (%) (Auto) 1.4, Basophils (%) ( Auto) 1.0, Sodium Level 136, Potassium Level 3.4, Chloride Level 98, Carbon Dioxide Level 23, Anion Gap 15, Blood Urea Nitrogen 10, Creatinine 1.3H, Estimat Glomerular Filtration Rate > 60, Glucose Level 107H, Calcium Level 8.0L , Total Bilirubin 1.0, Aspartate Amino Transf (AST/SGOT) 45H, Alanine Aminotransferase (ALT/SGPT) 27, Alkaline Phosphatase 38L, Total Creatine Kinase > 1700H, Total Protein 6.3L, Albumin 2.9L, Globulin 3.4, Albumin/Globulin Ratio 0.8L Height (Feet): 5 Height (Inches): 11.00 Weight (Pounds): 249 Extremities: trace edema CARLOS TARIQ Jul 28, 2016 14:49
[2016-07-28] MEDS: ceFAZolin sod 1 GM in D5W 55 ML IV SCH ×2 (15:07→23:02)
[2016-07-28] MEDS ORDERED: D5 1/2NS 1000ml IV ONE (16:34)
[2016-07-28] MEDS ORDERED: Tubing IV Secondary IV ONE (16:34)
[2016-07-28] MEDS: Docusate 100mg cap ORAL SCH (18:04)
--- NOTE | 2016-07-28 18:45 | Operative Note - Dictated ---
DATE OF OPERATION: 07/28/2016 PREOPERATIVE DIAGNOSES: 1. Right knee complete rupture of the quadriceps tendon. 2. Left knee complete rupture of the patellar tendon, mid substance, with significant fraying of the patellar tendon. PROCEDURE: 1. Right knee repair of the quadriceps tendon with two #2 FiberWire suture with drill holes through the patella. 2. Right knee repair of the medial and lateral proximal capsule of the knee joint. 3. Left knee repair of the patellar tendon with drill holes through the patella with augmentation of patella with frayed sagittal tear of the penobscot patella. 4. Left knee distal medial and lateral knee capsule repair with #1 Vicryl sutures. SURGEON: Cecil Soto M.D. PORTABLE MACHINE SANDER: Chantal Espino PA-C. ANESTHESIOLOGIST: Ace Duckworth M.D. ANESTHESIA: LMA anesthesia. EBL: Less than 100 mL. TOURNIQUET TIME: 66 minutes on the left, 72 minutes on the right side. COMPLICATIONS: None. BRIEF HISTORY: The patient is a 55-year-old gentleman who sustained bilateral knee injuries. He was unable to extend his knees. An MRI of the bilateral knees were obtained and the right knee showed a complete quadriceps tendon rupture and left knee showed a mid substance patellar rupture. After full discussion of the risks and benefits of the surgery and complications associated with it including infection, bleeding, neurovascular complication, possibility of continued pain, stiffness, inability to bend the knees, inability to get full flexion and extension, arthrofibrosis, infection requiring further surgery down the line, and other complications that may arise, he opted for surgical treatment as described above. OPERATIVE PROCEDURE: The patient was brought to the operating room and was placed supine. All pressure points were well padded. General LMA anesthesia was induced and bilateral knees were prepped and draped in the usual sterile fashion. The right knee was exsanguinated and tourniquet was inflated to 275 mmHg. A lateral-anterior incision of the knee was undertaken and incision was taken through the subcutaneous tissue. The patellar tendon rupture was visualized. This was a very complex structure with a sagittal plane rupture as well as a rupture of the distal pole of the patella. At this point, the wounds were thoroughly irrigated. Two #2 FiberWire sutures were placed on the distal patellar tendon, and through drill hole into the patella, they were repaired back onto the patella. The proximal fibers of the patellar tendon was then repaired back down with #2 FiberWire suture onto the distal portion of the patellar tendon using a modified Krackow stitches. These were then repaired down distally onto the more thickened and stable patellar tendon. This provided an excellent thick patellar tendon with good distal repair of the patellar tendon onto the patella tubing down the patella onto the penobscot position. Once this was completed, the medial and lateral capsule of the knee joint was then repaired using #1 Vicryl suture with [id number] stitches. Wounds were then thoroughly irrigated using copious amount of fluid. The subcutaneous tissue was closed in 2-0 Vicryl suture and skin was closed using 3-0 Monocryl suture. At this point, care was given to the right side. An incision was made over the quadriceps tendon on the right side. Incision was taken through the subcutaneous tissue. At this point, the right knee was exsanguinated and tourniquet was inflated to 275 mmHg. Incision was taken through the skin and subcutaneous tissue. The quadriceps tendon was identified. The scar tissue was removed. The proximal patella bone was then debrided. At this point, two #2 FiberWire stitches were used with a Krackow stitch in the quadriceps tendon. At this point, drill holes were made in the patella and the quadriceps tendon was repaired back onto the patella using two #2 FiberWire sutures through the drill holes. Once this was completed, the medial and lateral capsule was closed using #1 Vicryl suture with [id number] stitches. Wounds were thoroughly irrigated using copious amount of fluid. The subcutaneous tissue was closed using 2-0 Vicryl suture and skin was closed using 3-0 Monocryl suture. It should be noted that after the repair of both the right side and left side, the knee was placed through range of motion and could be be flexed up to 90 degrees without significant tension on the repair site. Sterile dressing was applied. The patient was taken to recovery room in stable condition. Cecil Soto M.D. DR: Marie JOB#: [id number] CC:
[2016-07-28] MEDS: oxyCONTIN 20mg tab ORAL SCH (20:37)
[2016-07-29] VITALS (8 sets, daily range): BP systolic 105–204; BP diastolic 58–93
--- NOTE | 2016-07-29 00:45 | Progress Note ---
DATE: 07/28/2016 SUBJECTIVE: The patient is doing well. No behavioral issues. Calm, oriented. The patient has . MENTAL STATUS EXAMINATION: The patient is calm and cooperative. Mood is neutral. Affect is constricted. Congruent mood. Thought process is concrete. Thought content, no suicidal or homicidal ideation. No delusions. Insight and judgment is impaired. PLAN: 1. We will continue the Lexapro 10 mg a.m. 2. Remeron 7.5 at bedtime. 3. Continue Ativan as needed. 4. We will continue to follow and monitor symptoms. Kiley La M.D. DR: PIERO JOB#: [id number] CC:
[2016-07-29] MEDS: D5 1/2NS w/KCl 20mEq 1,000 ML IV SCH ×3 (03:00→23:17)
--- NOTE | 2016-07-29 08:19 | Orthopedic Progress Note ---
Orthopedic - Progress Note Subjective Symptoms: c/o post-op knee pain Objective Vital Signs Laboratory Tests Test 07/28/16 16:00 Total Creatine Kinase > 1700 U/L (38-174) H Last 24 Hour Vital Signs Date Time Temp Pulse Resp B/P Pulse Ox O2 Delivery O2 Flow Rate FiO2 07/29/16 07:38 97.5 102 19 121/58 96 Nasal Cannula 07/29/16 05:32 97 106/93 07/29/16 04:11 181/92 07/29/16 04:00 115 07/29/16 03:51 97.9 113 21 181/92 97 Nasal Cannula 2.0 113 113 07/29/16 00:00 98 07/28/16 23:52 97.5 89 20 122/85 93 Room Air 2.0 85 87 07/28/16 20:00 96.8 94 20 136/78 99 Nasal Cannula 2.0 07/28/16 20:00 98 07/28/16 16:41 100 07/28/16 16:00 97.5 85 18 150/79 100 Nasal Cannula 2.0 07/28/16 15:04 97.4 84 20 133/75 100 Nasal Cannula 2.0 07/28/16 13:06 91 129/71 07/28/16 12:20 97.4 91 20 129/71 97 Nasal Cannula 2.0 07/28/16 12:05 97.5 89 20 129/73 100 Nasal Cannula 2.0 07/28/16 11:50 97.5 98 20 130/72 100 Nasal Cannula 2.0 07/28/16 11:48 98 07/28/16 11:35 97.5 98 20 143/77 99 Nasal Cannula 2.0 07/28/16 11:19 97.5 98 20 114/75 99 Nasal Cannula 2.0 07/28/16 10:57 97.1 92 20 141/73 100 Nasal Cannula 3.0 07/28/16 10:56 92 20 141/73 100 Nasal Cannula 3.0 07/28/16 10:41 91 20 131/73 100 Nasal Cannula 3.0 07/28/16 10:33 92 20 131/73 100 Nasal Cannula 3.0 07/28/16 10:25 92 20 131/73 100 Simple Mask 8.0 07/28/16 10:10 97 20 143/79 100 Simple Mask 8.0 07/28/16 09:56 99 20 137/77 100 Simple Mask 8.0 07/28/16 09:51 100 20 144/80 100 Simple Mask 8.0 07/28/16 09:46 99.0 100 20 135/80 100 Simple Mask 8.0 07/28/16 09:46 104 16 100 I&O Intake and Output 07/28/16 07/29/16 19:00 07:00 Intake Total 1120 ml 955 ml Output Total 1425 ml 500 ml Balance -305 ml 455 ml Intake Oral 120 ml IV Total 1000 ml 955 ml Output Urine Total 1400 ml 500 ml Estimated Blood Loss 25 ml # Voids 5 Wound: clean, dry, intact Drains: none Neuro Status: normal Vascular Status: normal Additional Comments Xray reviewed. Plan Plan: PT - WBAT, NO FLEXION NO CPM, pain management, discharge plan - Will need wheelchair and likely SNF. close outpt followup with Dr. Soto to progress motion over the next 4-6 weeks and follow along with post op PT, other - DVT ppx JERAMIE DURAN Jul 29, 2016 08:19
[2016-07-29 08:38] LABS: BASOPHILS % (AUTO) 0.7 % (0.0-2.0); EOSINOPHILS % (AUTO) 0.2 % (0.0-3.0); LYMPHOCYTES % (AUTO) 16.4 % (20.0-45.0); MEAN CORPUSCULAR HGB CONC 33.5 G/DL (32.0-36.0); MEAN CORPUSCULAR VOLUME 90 FL (80-99); MEAN PLATELET VOLUME 8.3 FL (6.5-10.1); MONOCYTES % (AUTO) 10.5 % (1.0-10.0); NEUTROPHILS % (AUTO) 72.2 % (45.0-75.0); PLATELET COUNT 194 K/UL (150-450); RED BLOOD COUNT 4.73 M/UL (4.70-6.10); RED CELL DISTRIBUTION WIDTH 12.3 % (11.6-14.8); WHITE BLOOD COUNT 13.9 K/UL (4.8-10.8)
[2016-07-29] MEDS: Docusate 100mg cap ORAL SCH ×3 (08:42→17:04)
[2016-07-29] MEDS: oxyCONTIN 20mg tab ORAL SCH ×2 (08:42→21:47)
[2016-07-29] MEDS: Enoxaparin 30mg Inj SUBQ SCH ×2 (08:43→21:48)
[2016-07-29 08:54] LABS: ANION GAP 11 (5-15); CALCIUM 8.4 mg/dL (8.6-10.2); CARBON DIOXIDE 24 mEQ/L (20-30); CHLORIDE 95 mEQ/L (98-107); CREATININE 1.2 mg/dL (0.7-1.2); GLOMERULAR FILTRATION RATE > 60 mL/min (>60); HEMOLYSIS 2; POTASSIUM 3.5 mEQ/L (3.4-4.9); SODIUM 130 mEQ/L (135-145)
[2016-07-29] MEDS ORDERED: celeBREX 200mg Cap **SURGERY PATIENTS ONLY ORAL SCH (09:00)
--- NOTE | 2016-07-29 12:42 | General Progress Note ---
Assessment/Plan Assessment/Plan 1. Acute intoxication of amphetamine 2. Rhabdomyolysis 3. Tachycardia, resolved 4. Renal insufficiency 5. R quad tendon rupture. L patellar tendon rupture, s/p repair 07/28/16 tolerated surgery well Psych help appreciated, calm post op care dc tele PT Subjective Constitutional: Reports: other - knee pain Allergies: Coded Allergies: No Known Allergies (Unverified , 07/25/16) Objective Last 24 Hour Vital Signs Date Time Temp Pulse Resp B/P Pulse Ox O2 Delivery O2 Flow Rate FiO2 07/29/16 11:58 97.5 96 19 117/62 95 Nasal Cannula 07/29/16 08:42 102 121/58 07/29/16 08:00 99 07/29/16 07:38 97.5 102 19 121/58 96 Nasal Cannula 07/29/16 05:32 97 106/93 07/29/16 04:11 181/92 07/29/16 04:00 115 07/29/16 03:51 97.9 113 21 181/92 97 Nasal Cannula 2.0 113 113 07/29/16 00:00 98 07/28/16 23:52 97.5 89 20 122/85 93 Room Air 2.0 85 87 07/28/16 20:00 96.8 94 20 136/78 99 Nasal Cannula 2.0 07/28/16 20:00 98 07/28/16 16:41 100 07/28/16 16:00 97.5 85 18 150/79 100 Nasal Cannula 2.0 07/28/16 15:04 97.4 84 20 133/75 100 Nasal Cannula 2.0 07/28/16 13:06 91 129/71 Intake and Output 07/28/16 07/29/16 19:00 07:00 Intake Total 1120 ml 955 ml Output Total 1425 ml 500 ml Balance -305 ml 455 ml Intake Oral 120 ml IV Total 1000 ml 955 ml Output Urine Total 1400 ml 500 ml Estimated Blood Loss 25 ml # Voids 5 Laboratory Tests 07/28/16 16:00: Total Creatine Kinase > 1700H 07/29/16 07:50: White Blood Count 13.9#H, Red Blood Count 4.73, Hemoglobin 14.2, Hematocrit 42.3 , Mean Corpuscular Volume 90, Mean Corpuscular Hemoglobin 30.0, Mean Corpuscular Hemoglobin Concent 33.5, Red Cell Distribution Width 12.3, Platelet Count 194, Mean Platelet Volume 8.3, Neutrophils (%) (Auto) 72.2, Lymphocytes (% ) (Auto) 16.4L, Monocytes (%) (Auto) 10.5H, Eosinophils (%) (Auto) 0.2, Basophils (%) (Auto) 0.7, Sodium Level 130L, Potassium Level 3.5, Chloride Level 95L, Carbon Dioxide Level 24, Anion Gap 11, Blood Urea Nitrogen 9, Creatinine 1.2, Estimat Glomerular Filtration Rate > 60, Glucose Level 138H, Calcium Level 8.4L Height (Feet): 5 Height (Inches): 11.00 Weight (Pounds): 249 General Appearance: no apparent distress, overweight Cardiovascular: normal rate Respiratory/Chest: lungs clear AUGUSTINE CABALLERO Jul 29, 2016 12:42
--- NOTE | 2016-07-29 14:23 | 48 Hour Post Anesthesia Eval ---
Post Anesthesia Evaluation Procedure: L Knee Patella Repair, R Knee Quad tendon repair Date of Evaluation: Jul 29, 2016 Time of Evaluation: 13:37 Blood Pressure Systolic: 117 0: 62 Pulse Rate: 96 Respiratory Rate: 19 Temperature (Fahrenheit): 97.5 O2 Sat by Pulse Oximetry: 95 Airway: patent Nausea: No Vomiting: No Pain Intensity: 2 Hydration Status: adequate Cardiopulmonary Status: Stable Mental Status/LOC: patient returned to baseline Follow-up Care/Observations: 0 Post-Anesthesia Complications: 0 Ace Duckworth MD Jul 29, 2016 14:23
--- NOTE | 2016-07-29 14:35 | Nephrology Progress Note ---
Assessment/Plan Problem List: (1) Rhabdomyolysis (2) Substance abuse (3) ARF (acute renal failure) Assessment: better, although CPK is still elevated Plan IVF follow BMP Subjective Subjective all noted had surgery yesterday Objective Objective Last 24 Hour Vital Signs Date Time Temp Pulse Resp B/P Pulse Ox O2 Delivery O2 Flow Rate FiO2 07/29/16 14:23 96 19 95 07/29/16 12:00 90 07/29/16 11:58 97.5 96 19 117/62 95 Nasal Cannula 07/29/16 08:42 102 121/58 07/29/16 08:00 99 07/29/16 07:38 97.5 102 19 121/58 96 Nasal Cannula 07/29/16 05:32 97 106/93 07/29/16 04:11 181/92 07/29/16 04:00 115 07/29/16 03:51 97.9 113 21 181/92 97 Nasal Cannula 2.0 113 113 07/29/16 00:00 98 07/28/16 23:52 97.5 89 20 122/85 93 Room Air 2.0 85 87 07/28/16 20:00 96.8 94 20 136/78 99 Nasal Cannula 2.0 07/28/16 20:00 98 07/28/16 16:41 100 07/28/16 16:00 97.5 85 18 150/79 100 Nasal Cannula 2.0 07/28/16 15:04 97.4 84 20 133/75 100 Nasal Cannula 2.0 Intake and Output 07/28/16 07/29/16 19:00 07:00 Intake Total 1120 ml 955 ml Output Total 1425 ml 500 ml Balance -305 ml 455 ml Intake Oral 120 ml IV Total 1000 ml 955 ml Output Urine Total 1400 ml 500 ml Estimated Blood Loss 25 ml # Voids 5 Laboratory Tests 07/28/16 16:00: Total Creatine Kinase > 1700H 07/29/16 07:50: White Blood Count 13.9#H, Red Blood Count 4.73, Hemoglobin 14.2, Hematocrit 42.3 , Mean Corpuscular Volume 90, Mean Corpuscular Hemoglobin 30.0, Mean Corpuscular Hemoglobin Concent 33.5, Red Cell Distribution Width 12.3, Platelet Count 194, Mean Platelet Volume 8.3, Neutrophils (%) (Auto) 72.2, Lymphocytes (% ) (Auto) 16.4L, Monocytes (%) (Auto) 10.5H, Eosinophils (%) (Auto) 0.2, Basophils (%) (Auto) 0.7, Sodium Level 130L, Potassium Level 3.5, Chloride Level 95L, Carbon Dioxide Level 24, Anion Gap 11, Blood Urea Nitrogen 9, Creatinine 1.2, Estimat Glomerular Filtration Rate > 60, Glucose Level 138H, Calcium Level 8.4L Height (Feet): 5 Height (Inches): 11.00 Weight (Pounds): 249 Cardiovascular: normal rate Respiratory/Chest: lungs clear Extremities: other - nio edema CARLOS TARIQ Jul 29, 2016 14:35
[2016-07-29] MEDS ORDERED: Norco 5mg/325mg tab ORAL PRN (23:15)
[2016-07-29] MEDS ORDERED: HYDROmorphone 1mg/ml Carpuject SUBQ PRN (23:15)
[2016-07-30] VITALS (10 sets, daily range): BP systolic 90–140; BP diastolic 39–89
[2016-07-30] MEDS ORDERED: LORazepam 1mg tab ORAL PRN
[2016-07-30 06:21] LABS: BASOPHILS % (AUTO) 0.7 % (0.0-2.0); EOSINOPHILS % (AUTO) 1.6 % (0.0-3.0); LYMPHOCYTES % (AUTO) 27.7 % (20.0-45.0); MEAN CORPUSCULAR HEMOGLOBIN 30.7 PG (27.0-31.0); MEAN CORPUSCULAR HGB CONC 33.5 G/DL (32.0-36.0); MEAN CORPUSCULAR VOLUME 91 FL (80-99); MONOCYTES % (AUTO) 13.7 % (1.0-10.0); NEUTROPHILS % (AUTO) 56.4 % (45.0-75.0); PLATELET COUNT 193 K/UL (150-450); RED BLOOD COUNT 4.11 M/UL (4.70-6.10); RED CELL DISTRIBUTION WIDTH 12.6 % (11.6-14.8); WHITE BLOOD COUNT 9.1 K/UL (4.8-10.8)
[2016-07-30 06:57] LABS: ANION GAP 12 (5-15); CALCIUM 8.3 mg/dL (8.6-10.2); CARBON DIOXIDE 26 mEQ/L (20-30); CHLORIDE 99 mEQ/L (98-107); CREATININE 1.4 mg/dL (0.7-1.2); GLOMERULAR FILTRATION RATE > 60 mL/min (>60); HEMOLYSIS 0; POTASSIUM 4.1 mEQ/L (3.4-4.9); SODIUM 137 mEQ/L (135-145)
[2016-07-30] MEDS ORDERED: celeBREX 200mg Cap **SURGERY PATIENTS ONLY ORAL SCH (09:00)
[2016-07-30] MEDS ORDERED: oxyCONTIN 20mg tab ORAL SCH (09:00)
[2016-07-30] MEDS: Docusate 100mg cap ORAL SCH ×3 (10:10→17:41)
[2016-07-30] MEDS: Enoxaparin 30mg Inj SUBQ SCH ×2 (10:12→21:07)
[2016-07-30] MEDS: D5 1/2NS w/KCl 20mEq 1,000 ML IV SCH (12:35)
--- NOTE | 2016-07-30 12:38 | Nephrology Progress Note ---
Assessment/Plan Problem List: (1) Rhabdomyolysis (2) Substance abuse (3) ARF (acute renal failure) Assessment: worse Plan DC NSAIDs follow BMP Discussed with Dr Corea Subjective Subjective C/O pain Objective Objective Last 24 Hour Vital Signs Date Time Temp Pulse Resp B/P Pulse Ox O2 Delivery O2 Flow Rate FiO2 07/30/16 11:38 99.3 07/30/16 11:06 99.3 07/30/16 10:09 98 114/56 07/30/16 08:00 99.3 98 18 114/66 99 Nasal Cannula 2.0 07/30/16 04:00 98.6 99 20 140/77 98 Nasal Cannula 2.0 07/29/16 23:34 98.1 93 18 116/70 99 Nasal Cannula 2.0 07/29/16 22:12 98.4 07/29/16 20:04 96 Nasal Cannula 2.0 28 07/29/16 20:04 Nasal Cannula 2.0 28 07/29/16 20:00 100.8 110 18 111/70 97 Nasal Cannula 3.0 07/29/16 15:40 97.7 91 19 105/65 96 Nasal Cannula 07/29/16 15:39 97.7 89 18 132/84 98 Room Air 07/29/16 14:23 96 19 95 Intake and Output 07/29/16 07/30/16 19:00 07:00 Intake Total 900 ml 840 ml Output Total 1000 ml Balance 900 ml -160 ml Intake Oral 240 ml IV Total 900 ml 600 ml Output Urine Total 1000 ml # Voids 2 Laboratory Tests 07/30/16 05:20: White Blood Count 9.1, Red Blood Count 4.11L, Hemoglobin 12.6L, Hematocrit 37.6L , Mean Corpuscular Volume 91, Mean Corpuscular Hemoglobin 30.7, Mean Corpuscular Hemoglobin Concent 33.5, Red Cell Distribution Width 12.6, Platelet Count 193, Mean Platelet Volume 8.0, Neutrophils (%) (Auto) 56.4, Lymphocytes (% ) (Auto) 27.7, Monocytes (%) (Auto) 13.7H, Eosinophils (%) (Auto) 1.6, Basophils (%) (Auto) 0.7, Sodium Level 137, Potassium Level 4.1, Chloride Level 99, Carbon Dioxide Level 26, Anion Gap 12, Blood Urea Nitrogen 13, Creatinine 1.4H, Estimat Glomerular Filtration Rate > 60, Glucose Level 105, Calcium Level 8.3L, Total Creatine Kinase 669H Height (Feet): 5 Height (Inches): 11.00 Weight (Pounds): 249 Cardiovascular: normal rate Respiratory/Chest: lungs clear Abdomen: soft Extremities: other - no edema CARLOS TARIQ Jul 30, 2016 12:38
--- NOTE | 2016-07-30 17:12 | General Progress Note ---
Assessment/Plan Assessment/Plan 1. Acute intoxication of amphetamine, resolved 2. Rhabdomyolysis, resolving 3. Tachycardia, resolved 4. Renal insufficiency, CKD 2 5. R quad tendon rupture. L patellar tendon rupture, s/p repair 07/28/16 low RR while asleep due to dilaudid dc dilaudid, PO [place] calm PT OK for dc when snf bed available Subjective Allergies: Coded Allergies: No Known Allergies (Unverified , 07/25/16) Subjective knee pain Objective Last 24 Hour Vital Signs Date Time Temp Pulse Resp B/P Pulse Ox O2 Delivery O2 Flow Rate FiO2 07/30/16 15:30 98.4 07/30/16 12:00 98.4 87 20 122/64 97 Room Air 07/30/16 11:06 99.3 07/30/16 10:09 98 114/56 07/30/16 08:00 99.3 98 18 114/66 99 Nasal Cannula 2.0 07/30/16 04:00 98.6 99 20 140/77 98 Nasal Cannula 2.0 07/29/16 23:34 98.1 93 18 116/70 99 Nasal Cannula 2.0 07/29/16 22:12 98.4 07/29/16 20:04 96 Nasal Cannula 2.0 28 07/29/16 20:04 Nasal Cannula 2.0 28 07/29/16 20:00 100.8 110 18 111/70 97 Nasal Cannula 3.0 Intake and Output 07/29/16 07/30/16 19:00 07:00 Intake Total 900 ml 840 ml Output Total 1000 ml Balance 900 ml -160 ml Intake Oral 240 ml IV Total 900 ml 600 ml Output Urine Total 1000 ml # Voids 2 Laboratory Tests 07/30/16 05:20: White Blood Count 9.1, Red Blood Count 4.11L, Hemoglobin 12.6L, Hematocrit 37.6L , Mean Corpuscular Volume 91, Mean Corpuscular Hemoglobin 30.7, Mean Corpuscular Hemoglobin Concent 33.5, Red Cell Distribution Width 12.6, Platelet Count 193, Mean Platelet Volume 8.0, Neutrophils (%) (Auto) 56.4, Lymphocytes (% ) (Auto) 27.7, Monocytes (%) (Auto) 13.7H, Eosinophils (%) (Auto) 1.6, Basophils (%) (Auto) 0.7, Sodium Level 137, Potassium Level 4.1, Chloride Level 99, Carbon Dioxide Level 26, Anion Gap 12, Blood Urea Nitrogen 13, Creatinine 1.4H, Estimat Glomerular Filtration Rate > 60, Glucose Level 105, Calcium Level 8.3L, Total Creatine Kinase 669H Height (Feet): 5 Height (Inches): 11.00 Weight (Pounds): 249 General Appearance: no apparent distress, alert Cardiovascular: normal rate Respiratory/Chest: lungs clear AUGUSTINE CABALLERO Jul 30, 2016 17:12
[2016-07-30] MEDS: Norco 7.5mg/325mg tab ORAL PRN (18:44)
[2016-07-30] MEDS: oxyCONTIN 10mg tab ORAL SCH (21:06)
--- NOTE | 2016-07-30 22:15 | Progress Note ---
DATE: 07/29/2016 SUBJECTIVE: The patient was calm, asleep and arousable. He endorses anxiety. He was that I found him "off guard." He did not have any complaints. He did not wanted to discuss his substance use disorder. Compliant with medication and is not having any adverse reaction to fluoxetine. MENTAL STATUS EXAMINATION: The patient is alert and oriented x3. Behavior is slightly bizarre. Mood is anxious. Affect is constricted. Congruent mood. Thought process is concrete. Thought content, there is no suicidal or homicidal ideations. No delusions. No AVH. ASSESSMENT: 1. Anxiety disorder. 2. Substance abuse disorder. PLAN: 1. The patient will be continued on current medication. 2. Provide the patient with supportive therapy and reality orientation. Kiley La M.D. DR: HARLEEN JOB#: [id number] CC:
[2016-07-30 23:37] LABS: TROPONIN I < 0.30 ng/mL (<=0.30)
[2016-07-30 23:39] LABS: ANION GAP 13 (5-15); CALCIUM 8.5 mg/dL (8.6-10.2); CARBON DIOXIDE 25 mEQ/L (20-30); CHLORIDE 96 mEQ/L (98-107); CREATININE 1.2 mg/dL (0.7-1.2); GLOMERULAR FILTRATION RATE > 60 mL/min (>60); HEMOLYSIS 3; SODIUM 134 mEQ/L (135-145)
[2016-07-30] MEDS ORDERED: Nitroglycerin Subl 0.4mg tab (Bottle Of 25) SL PRN (23:45)
[2016-07-30] MEDS ORDERED: Mylanta II UD 30ml ORAL PRN (23:45)
[2016-07-31] VITALS: BP 124/70
[2016-07-31] MEDS: D5 1/2NS w/KCl 20mEq 1,000 ML IV SCH (00:09)
[2016-07-31] MEDS: Norco 7.5mg/325mg tab ORAL PRN (03:55)
[2016-07-31 04:00] VITALS: BP 126/74
[2016-07-31 07:03] LABS: BASOPHILS % (AUTO) 1.4 % (0.0-2.0); EOSINOPHILS % (AUTO) 1.7 % (0.0-3.0); LYMPHOCYTES % (AUTO) 24.7 % (20.0-45.0); MEAN CORPUSCULAR HEMOGLOBIN 30.5 PG (27.0-31.0); MEAN CORPUSCULAR HGB CONC 33.6 G/DL (32.0-36.0); MEAN CORPUSCULAR VOLUME 91 FL (80-99); MEAN PLATELET VOLUME 8.2 FL (6.5-10.1); NEUTROPHILS % (AUTO) 60.2 % (45.0-75.0); PLATELET COUNT 205 K/UL (150-450); RED BLOOD COUNT 4.16 M/UL (4.70-6.10); RED CELL DISTRIBUTION WIDTH 12.4 % (11.6-14.8); WHITE BLOOD COUNT 9.1 K/UL (4.8-10.8)
[2016-07-31 07:55] VITALS: BP 124/74
[2016-07-31 08:28] VITALS: BP 130/71
[2016-07-31] MEDS: oxyCONTIN 10mg tab ORAL SCH (09:14)
[2016-07-31] MEDS: Docusate 100mg cap ORAL SCH ×2 (09:14→12:55)
[2016-07-31] MEDS: Enoxaparin 30mg Inj SUBQ SCH (09:15)
[2016-07-31] MEDS ORDERED: ACETAMINOPHEN325 M1 ORAL (10:35)
[2016-07-31] MEDS ORDERED: MYLANTA30 M1 PO (10:35)
[2016-07-31] MEDS ORDERED: AMLODIPINE BESYL5 MG ORAL (10:36)
[2016-07-31] MEDS ORDERED: CATAPRES0.1 MG ORAL (10:36)
[2016-07-31] MEDS ORDERED: LEXAPRO10 MG ORAL (10:37)
[2016-07-31] MEDS ORDERED: COLACE100 MG ORAL (10:37)
[2016-07-31] MEDS ORDERED: LOVENOX10 MG SUBQ (10:37)
[2016-07-31] MEDS ORDERED: NORCO 5-325 TA1 EACH ORAL (10:38)
[2016-07-31] MEDS ORDERED: NORCO 7.5-3251 EACH ORAL (10:38)
[2016-07-31] MEDS ORDERED: FERROUS SULFAT325 MG ORAL (10:38)
[2016-07-31] MEDS ORDERED: LORAZEPAM2 MG ORAL (10:39)
[2016-07-31] MEDS ORDERED: MIRTAZAPINE15 MG ORAL (10:39)
[2016-07-31] MEDS ORDERED: NITROGLYCERIN0.4 MG SL (10:40)
[2016-07-31] MEDS ORDERED: OXYCONTIN10 MG ORAL (10:40)
[2016-07-31 12:13] LABS: APPEARANCE,URINE CLEAR; KETONES,URINE NEGATIVE (NEGATIVE); LEUKOCYTE ESTERASE ,URINE 1+ (NEGATIVE); NITRITE,URINE NEGATIVE (NEGATIVE); PH,URINE 7 (4.5-8.0); PROTEIN,URINE NEGATIVE (NEGATIVE); UROBILINOGEN,URINE 4 MG/DL (0.0-1.0)
[2016-07-31 12:32] LABS: BACTERIA,URINE OCCASIONAL /HPF; RBC,URINE 0-2 /HPF (0 - 0); SQUAMOUS EPITHELIAL CELL,UR OCCASIONAL /LPF (NONE/OCC)
[2016-07-31 12:56] VITALS: BP 129/75
[2016-07-31 13:16] LABS: BASOPHILS % (AUTO) 0.8 % (0.0-2.0); EOSINOPHILS % (AUTO) 1.9 % (0.0-3.0); LYMPHOCYTES % (AUTO) 22.1 % (20.0-45.0); MEAN CORPUSCULAR HEMOGLOBIN 30.6 PG (27.0-31.0); MEAN CORPUSCULAR HGB CONC 33.8 G/DL (32.0-36.0); MEAN CORPUSCULAR VOLUME 90 FL (80-99); MEAN PLATELET VOLUME 7.5 FL (6.5-10.1); MONOCYTES % (AUTO) 9.8 % (1.0-10.0); NEUTROPHILS % (AUTO) 65.4 % (45.0-75.0); PLATELET COUNT 217 K/UL (150-450); RED CELL DISTRIBUTION WIDTH 12.5 % (11.6-14.8); WHITE BLOOD COUNT 8.1 K/UL (4.8-10.8)
--- NOTE | 2016-07-31 13:42 | Discharge Summary ---
Discharge Summary Hospital Course Date of Admission Jul 25, 2016 at 23:40 Date of Discharge 07/31/16 Admitting Diagnosis rhabdomyolysis HPI Wallace Todd is a 55 year old male who was admitted on Jul 25, 2016 at 23:40 for Rhabdomyolysis Consultations psych, ortho, renal Procedures 1. Right knee repair of the quadriceps tendon with two #2 FiberWire suture with drill holes through the patella. 2. Right knee repair of the medial and lateral proximal capsule of the knee joint. 3. Left knee repair of the patellar tendon with drill holes through the patella with augmentation of patella with frayed sagittal tear of the [place] patella. 4. Left knee distal medial and lateral knee capsule repair with #1 Vicryl sutures. Hospital Course admitted with amphetamine OD and withdrawal had bilateral knee pain and procedures above high CPK resolved with renal failure resolving seen by psych for anxiety dc to snf Discharge Medications Continued Medications: Acetaminophen* (Acetaminophen 325MG Tablet*) 325 Mg Tablet 650 MG ORAL Q4H PRN for Fever/Headache/Mild Pain, TAB Al Hydroxide/mg Hydroxide (Mag-Al Liquid) 30 Ml Oral.susp 30 ML PO Q6HR PRN for gastric upset, ML Amlodipine Besylate* (Amlodipine Besylate*) 5 Mg Tablet 5 MG ORAL DAILY, TAB Clonidine Hcl* (Catapres*) 0.1 Mg Tablet 0.1 MG ORAL EVERY 4 HOURS PRN for For High Blood Pressure, TAB Docusate Sodium* (Colace*) 100 Mg Capsule 100 MG ORAL THREE TIMES A DAY, CAP Enoxaparin* (Lovenox*) 30 Mg/0.3 Ml Inj 30 MG SUBQ EVERY 12 HOURS, #60 EA 0 Refills Escitalopram Oxalate* (Lexapro*) 10 Mg Tablet 10 MG ORAL DAILY, TAB Ferrous Sulfate* (Ferrous Sulfate*) 325 Mg Tablet 325 MG ORAL THREE TIMES A DAY, #90 TAB 0 Refills Hydrocodone Bit/Acetaminophen 5-325* ([place] 5-325*) 1 Each Tablet 2 TAB ORAL Q4H PRN for For Pain, TAB 0 Refills Hydrocodone Bit/Acetaminophen 7.5-325* ([place] 7.5-325*) 1 Each Tablet 1 TAB ORAL Q4H PRN for For Pain, #30 TAB 0 Refills Lorazepam* (Lorazepam*) 2 Mg Tablet 2 MG ORAL 1hr PRN for For Anxiety, TAB Mirtazapine* (Remeron*) 15 Mg Tablet 7.5 MG ORAL BEDTIME, TAB Nitroglycerin (Nitroglycerin) 0.4 Mg Tab.subl 0.4 MG SL q5 minutes x 3 doses PRN for chest pain, TAB No Known Medications* (NKM - No Known Medications*) . 0 ., 0 Refills Oxycodone Hcl Er* (Oxycontin*) 10 Mg Tab.er.12h 10 MG ORAL EVERY 12 HOURS, TAB Discharge Condition Upon Discharge: improving Discharge Disposition Patient was discharged to SNF/Subacute Facility(03) Discharge Diagnoses: (1) Substance abuse (2) Rhabdomyolysis (3) ARF (acute renal failure) (4) Tachycardia with heart rate 121-140 beats per minute (5) Ruptured patellar tendon (6) Rupture quadriceps tendon AUGUSTINE CABALLERO Jul 31, 2016 13:42
--- NOTE | 2016-07-31 14:47 | Nephrology Progress Note ---
Assessment/Plan Problem List: (1) Rhabdomyolysis (2) Substance abuse (3) ARF (acute renal failure) Assessment: better Plan cont as is DC to SNF Subjective Subjective all noted Objective Objective Last 24 Hour Vital Signs Date Time Temp Pulse Resp B/P Pulse Ox O2 Delivery O2 Flow Rate FiO2 07/31/16 12:56 97.0 85 20 129/75 98 Room Air 07/31/16 10:13 98.2 07/31/16 09:14 87 130/71 07/31/16 08:28 98.2 87 20 130/71 98 Room Air 07/31/16 07:12 Room Air 21 07/31/16 07:12 98 Room Air 07/31/16 04:00 98.3 99 20 126/74 98 Room Air 07/31/16 00:00 97.9 82 21 124/70 95 Nasal Cannula 2.5 07/30/16 21:30 98 Room Air 21 07/30/16 21:30 Room Air 07/30/16 19:00 98.8 81 18 100/69 96 07/30/16 16:20 98.2 71 20 90/54 96 07/30/16 16:00 98.3 76 20 118/68 98 Room Air 07/30/16 15:55 97.9 84 18 103/89 96 Room Air 07/30/16 15:30 98.4 Intake and Output 07/30/16 07/31/16 19:00 07:00 Intake Total 1710.0 ml 1125 ml Output Total 625 ml 250 ml Balance 1085.0 ml 875 ml Intake Oral 960 ml 300 ml IV Total 750.0 ml 825 ml Output Urine Total 625 ml 250 ml # Voids 2 1 Laboratory Tests 07/30/16 23:00: Sodium Level 134L, Potassium Level 4.0, Chloride Level 96L, Carbon Dioxide Level 25, Anion Gap 13, Blood Urea Nitrogen 14, Creatinine 1.2, Estimat Glomerular Filtration Rate > 60, Glucose Level 102, Calcium Level 8.5L, Troponin I < 0.30 07/31/16 06:00: White Blood Count 9.1, Red Blood Count 4.16L, Hemoglobin 12.7L, Hematocrit 37.8L , Mean Corpuscular Volume 91, Mean Corpuscular Hemoglobin 30.5, Mean Corpuscular Hemoglobin Concent 33.6, Red Cell Distribution Width 12.4, Platelet Count 205, Mean Platelet Volume 8.2, Neutrophils (%) (Auto) 60.2, Lymphocytes (% ) (Auto) 24.7, Monocytes (%) (Auto) 12.0H, Eosinophils (%) (Auto) 1.7, Basophils (%) (Auto) 1.4 07/31/16 11:53: Urine Color Yellow, Urine Appearance Clear, Urine pH 7, Urine Specific [place] 1.010, Urine Protein Negative, Urine Glucose (UA) Negative, Urine Ketones Negative, Urine Occult Blood Negative, Urine Nitrite Negative, Urine Bilirubin Negative, Urine Urobilinogen 4H, Urine Leukocyte Esterase 1+H, Urine RBC 0-2H, Urine WBC 2-4, Urine Squamous Epithelial Cells Occasional, Urine Bacteria Occasional 07/31/16 12:50: White Blood Count 8.1, Red Blood Count 4.40L, Hemoglobin 13.4L, Hematocrit 39.8L , Mean Corpuscular Volume 90, Mean Corpuscular Hemoglobin 30.6, Mean Corpuscular Hemoglobin Concent 33.8, Red Cell Distribution Width 12.5, Platelet Count 217, Mean Platelet Volume 7.5, Neutrophils (%) (Auto) 65.4, Lymphocytes (% ) (Auto) 22.1, Monocytes (%) (Auto) 9.8, Eosinophils (%) (Auto) 1.9, Basophils ( %) (Auto) 0.8 Height (Feet): 5 Height (Inches): 11.00 Weight (Pounds): 249 Cardiovascular: normal rate Respiratory/Chest: lungs clear CARLOS TARIQ Jul 31, 2016 14:47
--- NOTE | 2016-08-02 22:50 | Cardiology Report ---
APPROVED REPORT EKG Measurement Heart [id number] Sinus tachycardia Left posterior fascicular block Abnormal ECG
--- NOTE | 2016-08-03 08:44 | Cardiology Report ---
APPROVED REPORT EXAM: Two-dimensional and M-mode echocardiogram with Doppler and color Doppler. INDICATION Congestive Heart Failure M-Mode DIMENSIONS IVSd1.2 (0.7-1.1cm)Left Atrium (MM)3.1 (1.6-4.0cm) LVDd3.3 (3.5-5.6cm)Aortic Root3.0 (2.0-3.7cm) PWd1.4 (0.7-1.1cm)Aortic Cusp Exc.2.2 (1.5-2.0cm) LVDs1.9 (2.5-4.0cm) PWs1.1 cm Normal left ventricular chamber size, systolic function and wall motion. Left ventricular ejection fraction estimated to be 55 %. Mild left ventricular hypertrophy. Possible trivial pericardial effusion. No evidence of pleural effusion. All other cardiac chamber sizes are within normal limits. Focal aortic valve sclerosis with adequate cusp excursion. Thickened mitral valve leaflets with normal excursion. Mitral annulus and aortic root calcification. Normal pulmonic valve structure. Normal tricuspid valve structure. IVC dilated at 1.9 cm with physiologic collapse. A color flow and spectral Doppler study was performed and revealed: No aortic regurgitation. Trace mitral regurgitation. Mitral diastolic velocities suggest reduced left ventricular relaxation (Grade I). Trace tricuspid regurgitation. Tricuspid systolic velocities suggests peak right ventricular systolic pressure of 14 mmHg. No pulmonic regurgitation present.
== END 2016-07-31 16:08 | DRG 488 ==
LOC: EDBD 20:19 → EDBEDREQ 21:27 → EMR 21:48 → EDBEDREQ 23:11 → 2E 23:40 → 3E 07-29 22:37
PROC: 0LQL0ZZ Repair Right Upper Leg Tendon, Open Approach (ICD-10-PCS; principal; 2016-07-28 07:00)
PROC: 0LQR0ZZ Repair Left Knee Tendon, Open Approach (ICD-10-PCS; principal; 2016-07-28 07:00)
PROC: 0SQC0ZZ Repair Right Knee Joint, Open Approach (ICD-10-PCS; principal; 2016-07-28 07:00)
PROC: 0SQD0ZZ Repair Left Knee Joint, Open Approach (ICD-10-PCS; principal; 2016-07-28 07:00)
DX: S76.112A Strain of left quadriceps muscle, fascia and tendon, initial encounter (principal); M62.82 Rhabdomyolysis; N17.9 Acute kidney failure, unspecified; W19.XXXA Unspecified fall, initial encounter; F15.129 Other stimulant abuse with intoxication, unspecified; S76.111A Strain of right quadriceps muscle, fascia and tendon, initial encounter; Y92.9 Unspecified place or not applicable; E78.5 Hyperlipidemia, unspecified; I10 Essential (primary) hypertension; R00.0 Tachycardia, unspecified; E86.0 Dehydration; J45.909 Unspecified asthma, uncomplicated; F41.9 Anxiety disorder, unspecified; I12.9 Hypertensive chronic kidney disease with stage 1 through stage 4 chronic kidney disease, or unspecified chronic kidney disease; N18.2 Chronic kidney disease, stage 2 (mild)
CPT/HCPCS: 36415; 71010; 80048; 80053; 80300; 81001; 82550; 82553; 82962; 83690; 83735; 83880; 84484; 84550; 85025; 85610; 85730; 87086; 87181; 93005; 93306; 94003; 94150; 94760; J2250; J2405; J3490